=== PATIENT | male | born 1930 | race Caucasian/White ===

== ENCOUNTER → 2016-10-20 | Outpatient (CLI) | payer MEDICARE, OTHER ==
[~2016-10-20] MED LIST: ASPIR-LOW81 MG PO; CLARITIN DPS10 MG PO; CLOPIDOGREL75 MG PO; DANAZOL200 MG PO; FLOMAX DPS0.4 MG PO; LIPITOR DPS20 MG PO; NORVASC DPS10 MG PO; OMEPRAZOLE20 M1 PO; PROAIR RESPICL90 MCG IH; TYLENOL DPS325 MG PO
== END | disposition home or self-care (01) ==
LOC: PTH.S 08:09 → RAD.S 09:00
DX: I71.2 Thoracic aortic aneurysm, without rupture (principal); R91.1 Solitary pulmonary nodule